=== PATIENT | female | born 1940 | race Caucasian/White ===

== ENCOUNTER 2017-01-09 11:33 | Observation (INO) | payer OTHER ==
[2017-01-09] MEDS ORDERED: NS 1,000 ML IV ONE (11:51)
[2017-01-09] MEDS ORDERED: ASPIRIN 81 MG CHEWABLE TAB PO ONE (11:51)
--- NOTE | 2017-01-09 11:51 | EDPHY ---
H & P Stated Complaint: Intermittent palpitations since Monday;hasn't taken BP meds HPI/ROS: HPI CHIEF COMPLAINT: Generalized weakness, fatigue, worse with exertion, irregular heartbeat HISTORY OF PRESENT ILLNESS: this patient very pleasant 76-year-old female significant past medical history for hypertension, AFib, presents to the emergency room by private vehicle with her family at bedside for feeling fatigued and generalized weakness that started she thinks Monday night Monday morning. She tells me every time that she goes to exert herself she denies to sit down and rest. She also has noted irregular heartbeat. Denies chest pain. Denies shortness of breath. Denies nausea vomiting. Recent illness. She does tell me she thought her blood pressure was low on Monday and is held her blood pressure medication which includes lisinopril and Amlodipine. Patient does have a history of hypertension and AFib she takes a full-dose aspirin. She decided come to the emergency room today as she has had ongoing generalized weakness. Past Medical History: Hypertension, AFib Past Surgical History: appendectomy Social History: denies daily use drugs alcohol tobacco products lives locally Family History: noncontributory ROS REVIEW OF SYSTEMS: A comprehensive 10 point review of systems is otherwise negative aside from elements mentioned in the history of present illness. Exam Constitutional appears well nontoxic, triage nursing summary reviewed, vital signs reviewed, awake/alert. (HTN) Eyes normal conjunctivae and sclera, EOMI, PERRLA. HENT normal inspection, atraumatic, moist mucus membranes, no epistaxis, neck supple/ no meningismus, no raccoon eyes. Respiratory clear to auscultation bilaterally, normal breath sounds, no respiratory distress, no wheezing. Cardiovascular irregular, irregular rhythm, no murmur, no edema, distal pulses normal. Gastrointestinal soft, non-tender, no rebound, no guarding, normal bowel sounds, no distension, no pulsatile mass. Genitourinary no CVA tenderness. Musculoskeletal no midline vertebral tenderness, full range of motion, no calf swelling, no tenderness of extremities, no meningismus, good pulses, neurovascularly intact. Skin pink, warm, & dry, no rash, skin atraumatic. Neurologic awake, alert and oriented x 3, AAOx3, moves all 4 extremities equally, motor intact, sensory intact, CN II-XII intact, normal cerebellar, normal vision, normal speech. Psychiatric normal mood/affect. Heme/Lymph/Immune no lymphadenopathy. Differential Diagnosis: includes but is not limited to in a particular order, generalized weakness, electrolyte disturbance, renal failure, cardiac arrhythmia , AFib, ACS, Medical Decision Making: plan for this patient full monitoring analyst, IV establishment, blood work, EKG. Re-evaluation: ED EKG: EKG time 11:52 a.m., this is sinus rhythm rate of 89 there is a sinus arrhythmia present. ST depressions seen in anterior lateral leads. No acute ST elevation. ED x-ray chest one view: Cardiomegaly present otherwise no significant pulmonary edema. 1318: This patient's sodium was noted to be low at 129. Given her generalized weakness and weakness with exertion at this may be an indicator of symptomatic hyponatremia. I went over her blood results with the patient she is agreeable for admission. She did receive 1 L of normal saline here. Plan is for admission for hyponatremia. Blood pressure improved on its own here. Denies chest pain or shortness of breath. D-dimer negative. Troponin negative. Source: Patient - Personal History Current Tetanus Diphtheria and Acellular Pertussis (TDAP): Unsure - Medical/Surgical History Hx Cardiac Disease: Yes Other PMH: afib. HTN - Social History Smoking Status: Former smoker Constitutional: Initial Vital Signs Temperature (C) 36.4 C 01/09/17 11:34 Heart Rate 88 01/09/17 11:34 Respiratory Rate 18 01/09/17 11:34 Blood Pressure 184/107 H 01/09/17 11:34 O2 Sat (%) 94 01/09/17 11:34 O2 Delivery Mode Room Air Allergies/Adverse Reactions: gluten [Gluten] Allergy (Verified 10/17/11 13:34) GI lidocaine [Lidocaine] Allergy (Verified 10/17/11 13:20) DROPPED BLOOD PRESSURE Home Medications: Medication Instructions Recorded Hydrochlorothiazide [HCTZ (*)] 25 mg PO DAILY 01/09/17 Levothyroxine [Synthroid 75 mcg 75 mcg PO DAILY06 01/09/17 (*)] Lisinopril [Zestril 20 mg (*)] 20 mg PO 01/09/17 amLODIPine BESYLATE [Norvasc 2.5 2.5 mg PO DAILY 01/09/17 mg (*)] Medical Decision Making - Diagnostics Imaging Results: Imaging Impressions Chest X-Ray 01/09/17 11:51 Impression: Borderline cardiomegaly. No acute process. - Data Points Laboratory Results: Laboratory Results 01/09/17 12:10 01/09/17 12:10 01/09/17 01/09/17 01/09/17 12:10 12:10 12:10 WBC 8.40 10^3/uL 10^3/uL (3.80-9.50) RBC 4.89 10^6/uL 10^6/uL (4.18-5.33) Hgb 15.1 g/dL g/dL (12.6-16.3) Hct 43.3 % % (38.0-47.0) MCV 88.5 fL fL (81.5-99.8) MCH 30.9 pg pg (27.9-34.1) MCHC 34.9 g/dL g/dL (32.4-36.7) RDW 12.6 % % (11.5-15.2) Plt Count 381 10^3/uL 10^3/uL (150-400) MPV 10.2 fL fL (8.7-11.7) Neut % (Auto) 64.5 % % (39.3-74.2) Lymph % (Auto) 27.1 % % (15.0-45.0) [facility] % (Auto) 6.1 % % (4.5-13.0) Eos % (Auto) 1.0 % % (0.6-7.6) Baso % (Auto) 0.5 % % (0.3-1.7) Nucleat RBC Rel Count 0.0 % % (0.0-0.2) Absolute Neuts (auto) 5.42 10^3/uL 10^3/uL (1.70-6.50) Absolute Lymphs (auto) 2.28 10^3/uL 10^3/uL (1.00-3.00) Absolute Monos (auto) 0.51 10^3/uL 10^3/uL (0.30-0.80) Absolute Eos (auto) 0.08 10^3/uL 10^3/uL (0.03-0.40) Absolute Basos (auto) 0.04 10^3/uL 10^3/uL (0.02-0.10) Absolute Nucleated RBC 0.00 10^3/uL 10^3/uL (0-0.01) Immature Gran % 0.8 % % (0.0-1.1) Immature Gran # 0.07 10^3/uL 10^3/uL (0.00-0.10) PT 12.5 SEC SEC (12.0-15.0) INR 0.94 (0.83-1.16) APTT 25.8 SEC SEC (23.0-38.0) D-Dimer 0.30 ug/mLFEU ug/mLFEU (0.00-0.50) Sodium 129 mEq/L L mEq/L (134-144) Potassium 4.4 mEq/L mEq/L (3.5-5.2) Chloride 94 mEq/L L mEq/L (97-110) Carbon Dioxide 22 mEq/l mEq/l (22-31) Anion Gap 13 mEq/L mEq/L (8-16) BUN 34 mg/dL H mg/dL (7-23) Creatinine 0.8 mg/dL mg/dL (0.6-1.0) Estimated GFR > 60 Glucose 111 mg/dL H mg/dL (70-100) Calcium 10.1 mg/dL mg/dL (8.5-10.4) Magnesium 2.1 mg/dL mg/dL (1.6-2.3) Total Bilirubin 0.7 mg/dL mg/dL (0.1-1.4) Conjugated Bilirubin 0.5 mg/dL mg/dL (0.0-0.5) Unconjugated Bilirubin 0.2 mg/dL mg/dL (0.0-1.1) AST 24 IU/L IU/L (14-46) ALT 31 IU/L IU/L (9-52) Alkaline Phosphatase 72 IU/L IU/L (38-126) Creatine Kinase 46 IU/L IU/L (0-156) CK-MB (CK-2) Fraction 1.15 ng/mL ng/mL (0-3.19) Troponin I < 0.012 ng/mL ng/mL (0-0.034) NT-Pro-B Natriuret Pep 736 pg/mL H pg/mL (0-450) Total Protein 7.7 g/dL g/dL (6.3-8.2) Albumin 4.7 g/dL g/dL (3.5-5.0) Medications Given: Discontinued Medications Aspirin (Aspirin) 324 mg PO EDNOW ONE Stop: 01/09/17 11:52 Last Admin: 01/09/17 12:16 Dose: 324 mg Sodium Chloride (Ns) 1,000 mls @ 0 mls/hr IV ONCE ONE PRN Reason: Wide Open Stop: 01/09/17 11:52 Last Admin: 01/09/17 12:16 Dose: 1,000 mls Departure - Departure Disposition: [facility] Inpatient Acute Clinical Impression: Hyponatremia Condition: Fair Referrals: Alvarez Carrero MD [Primary Care Provider] - As per Instructions
--- NOTE | 2017-01-09 11:55 | CPEKG ---
Heart Rate: 89 RR Interval: 674 QRSD Interval: 88 QT Interval: 352 QTC Interval: 429 QRS [place]: 10 T Wave [place]: 97 EKG Severity - ABNORMAL ECG - EKG Impression: ATRIAL FIBRILLATION, V-RATE 65-114 EKG Impression: BORDERLINE INFERIOR Q WAVES EKG Impression: MINIMAL ST DEPRESSION, ANTEROLATERAL LEADS Electronically Signed By: Bhupendra Herrera 09-Jan-2017 21:13:46
[2017-01-09 12:25] LABS: % IMMATURE GRANULYOCYTES 0.8 % (0.0-1.1); ABSOLUTE IMMATURE GRANULOCYTES 0.07 10^3/uL (0.00-0.10); ADD DIFF? NO; ADD MORPH? NO; ADD SCAN? NO; ATYPICAL LYMPHOCYTE FLAG 0 (0-99); FRAGMENT RBC FLAG 0 (0-99); HEMATOCRIT 43.3 % (38.0-47.0); HEMOGLOBIN 15.1 g/dL (12.6-16.3); LEFT SHIFT FLG 0 (0-99); LIPEMIA HEMOLYSIS FLAG 90 (0-99); MEAN CELL HEMOGLOBIN 30.9 pg (27.9-34.1); MEAN CELL HEMOGLOBIN CONCENTR. 34.9 g/dL (32.4-36.7); MEAN CELL VOLUME 88.5 fL (81.5-99.8); MEAN PLATELET VOLUME 10.2 fL (8.7-11.7); PLATELET CLUMPS FLAG 10 (0-99); PLATELET COUNT 381 10^3/uL (150-400); RED BLOOD CELL COUNT 4.89 10^6/uL (4.18-5.33); RED CELL DISTRIBUTION WIDTH 12.6 % (11.5-15.2)
[2017-01-09 12:29] LABS: INR 0.94 (0.83-1.16); PROTIME(PATIENT) 12.5 SEC (12.0-15.0)
[2017-01-09 12:30] LABS: APTT 25.8 SEC (23.0-38.0)
[2017-01-09 12:35] LABS: ALANINE AMINOTRANSFERASE 31 IU/L (9-52); ALBUMIN 4.7 g/dL (3.5-5.0); ALKALINE PHOSPHATASE 72 IU/L (38-126); ANION GAP 13 mEq/L (8-16); ASPARTATE AMINOTRANSFERASE 24 IU/L (14-46); BILIRUBIN,TOTAL 0.7 mg/dL (0.1-1.4); BILIRUBIN-CONJUGATED 0.5 mg/dL (0.0-0.5); BILIRUBIN-UNCONJUGATED 0.2 mg/dL (0.0-1.1); CALCIUM 10.1 mg/dL (8.5-10.4); CARBON DIOXIDE 22 mEq/l (22-31); CHLORIDE 94 mEq/L (97-110); CREATININE 0.8 mg/dL (0.6-1.0); GLOMERULAR FILTRATION RATE > 60; GLUCOSE 111 mg/dL (70-100); MAGNESIUM 2.1 mg/dL (1.6-2.3); POTASSIUM 4.4 mEq/L (3.5-5.2); SODIUM 129 mEq/L (134-144); TOTAL PROTEIN 7.7 g/dL (6.3-8.2)
[2017-01-09 12:47] LABS: CREATINE KINASE-MB FRACTION 1.15 ng/mL (0-3.19); TROPONIN I < 0.012 ng/mL (0-0.034)
[2017-01-09] MEDS ORDERED: ACETAMINOPHEN 325 MG TAB PO PRN (14:47)
[2017-01-09] MEDS ORDERED: ONDANSETRON DISINTEGRATING 4 MG TAB PO PRN (14:47)
[2017-01-09] MEDS ORDERED: ONDANSETRON 4 MG/2 ML VIAL IVP PRN (14:47)
[2017-01-09] MEDS: LISINOPRIL 20 MG TAB PO SCH (15:12)
--- NOTE | 2017-01-09 15:35 | PDGENHP ---
History and Physical - Chief Complaint weakness - History of Present Illness 76 yo female with h/o hypertension and atrial fibrillation presents to the ED with generalized weakness for the past 2 days. She is usually active and independent. 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 She denies any CP or SOB. No headaches, vision changes, speech difficulties or focal weakness. She denies confusion or dysequilibrium. She takes HCTZ for hypertension for "years". She has h/o A fib and notes her HR can go as high as 110, but is not on a rate control agent. No fevers/chills or focal symptoms of infection. She is admitted to the hospital for further evaluation. History Information - Allergies/Home Medication List Allergies/Adverse Reactions: gluten [Gluten] Allergy (Verified 10/17/11 13:34) GI lidocaine [Lidocaine] Allergy (Verified 10/17/11 13:20) DROPPED BLOOD PRESSURE Home Medications: Hydrochlorothiazide [HCTZ (*)] 25 mg PO DAILY 01/09/17 [Last Taken Unknown] Levothyroxine [Synthroid 75 mcg (*)] 75 mcg PO MOTUWETHFRSA@06 01/09/17 [Last Taken Unknown] Lisinopril [Zestril 20 mg (*)] 20 mg PO DAILY 01/09/17 [Last Taken Unknown] amLODIPine BESYLATE [Norvasc 2.5 mg (*)] 2.5 mg PO DAILY 01/09/17 [Last Taken Unknown] I have personally reviewed and updated: family history, medical history, social history, surgical history - Past Medical History atrial fibrillation, hypertension - Surgical History Reports: appendectomy - Family History Positive for: non-pertinent - Social History Smoking Status: Former smoker Alcohol Use: None Drug Use: None Additional social history: Lives independently. Review of Systems ROS: 10pt was reviewed & negative except for what was stated in HPI & below Physical Exam Temp Pulse Resp BP Pulse Ox 36.4 C 79 16 184/80 H 95 01/09/17 14:28 01/09/17 14:28 01/09/17 14:28 01/09/17 15:12 01/09/17 14:28 Constitutional: no apparent distress Eyes: PERRL Ears, Nose, Mouth, Throat: moist mucous membranes Cardiovascular: regular rate and rhythym, no murmur, rub, or gallop Respiratory: no respiratory distress, clear to auscultation Gastrointestinal: normoactive bowel sounds, soft, non-tender abdomen Skin: warm Musculoskeletal: full muscle strength Neurologic: AAOx3 Psychiatric: interacting appropriately Lab Data & Imaging Review 01/09/17 12:10 01/09/17 12:10 WBC 8.40 10^3/uL (3.80-9.50) 01/09/17 12:10 RBC 4.89 10^6/uL (4.18-5.33) 01/09/17 12:10 Hgb 15.1 g/dL (12.6-16.3) 01/09/17 12:10 Hct 43.3 % (38.0-47.0) 01/09/17 12:10 MCV 88.5 fL (81.5-99.8) 01/09/17 12:10 MCH 30.9 pg (27.9-34.1) 01/09/17 12:10 MCHC 34.9 g/dL (32.4-36.7) 01/09/17 12:10 RDW 12.6 % (11.5-15.2) 01/09/17 12:10 Plt Count 381 10^3/uL (150-400) 01/09/17 12:10 MPV 10.2 fL (8.7-11.7) 01/09/17 12:10 Neut % (Auto) 64.5 % (39.3-74.2) 01/09/17 12:10 Lymph % (Auto) 27.1 % (15.0-45.0) 01/09/17 12:10 Ness % (Auto) 6.1 % (4.5-13.0) 01/09/17 12:10 Eos % (Auto) 1.0 % (0.6-7.6) 01/09/17 12:10 Baso % (Auto) 0.5 % (0.3-1.7) 01/09/17 12:10 Nucleat RBC Rel Count 0.0 % (0.0-0.2) 01/09/17 12:10 Absolute Neuts (auto) 5.42 10^3/uL (1.70-6.50) 01/09/17 12:10 Absolute Lymphs (auto) 2.28 10^3/uL (1.00-3.00) 01/09/17 12:10 Absolute Monos (auto) 0.51 10^3/uL (0.30-0.80) 01/09/17 12:10 Absolute Eos (auto) 0.08 10^3/uL (0.03-0.40) 01/09/17 12:10 Absolute Basos (auto) 0.04 10^3/uL (0.02-0.10) 01/09/17 12:10 Absolute Nucleated RBC 0.00 10^3/uL (0-0.01) 01/09/17 12:10 Immature Gran % 0.8 % (0.0-1.1) 01/09/17 12:10 Immature Gran # 0.07 10^3/uL (0.00-0.10) 01/09/17 12:10 PT 12.5 SEC (12.0-15.0) 01/09/17 12:10 INR 0.94 (0.83-1.16) 01/09/17 12:10 APTT 25.8 SEC (23.0-38.0) 01/09/17 12:10 D-Dimer 0.30 ug/mLFEU (0.00-0.50) 01/09/17 12:10 Sodium 129 mEq/L (134-144) L 01/09/17 12:10 Potassium 4.4 mEq/L (3.5-5.2) 01/09/17 12:10 Chloride 94 mEq/L (97-110) L 01/09/17 12:10 Carbon Dioxide 22 mEq/l (22-31) 01/09/17 12:10 Anion Gap 13 mEq/L (8-16) 01/09/17 12:10 BUN 34 mg/dL (7-23) H 01/09/17 12:10 Creatinine 0.8 mg/dL (0.6-1.0) 01/09/17 12:10 Estimated GFR > 60 01/09/17 12:10 Glucose 111 mg/dL (70-100) H 01/09/17 12:10 Calcium 10.1 mg/dL (8.5-10.4) 01/09/17 12:10 Magnesium 2.1 mg/dL (1.6-2.3) 01/09/17 12:10 Total Bilirubin 0.7 mg/dL (0.1-1.4) 01/09/17 12:10 Conjugated Bilirubin 0.5 mg/dL (0.0-0.5) 01/09/17 12:10 Unconjugated Bilirubin 0.2 mg/dL (0.0-1.1) 01/09/17 12:10 AST 24 IU/L (14-46) 01/09/17 12:10 ALT 31 IU/L (9-52) 01/09/17 12:10 Alkaline Phosphatase 72 IU/L (38-126) 01/09/17 12:10 Creatine Kinase 46 IU/L (0-156) 01/09/17 12:10 CK-MB (CK-2) Fraction 1.15 ng/mL (0-3.19) 01/09/17 12:10 Troponin I < 0.012 ng/mL (0-0.034) 01/09/17 12:10 NT-Pro-B Natriuret Pep 736 pg/mL (0-450) H 01/09/17 12:10 Total Protein 7.7 g/dL (6.3-8.2) 01/09/17 12:10 Albumin 4.7 g/dL (3.5-5.0) 01/09/17 12:10 Assessment & Plan Assessment: Weakness - Acute. This may be symptomatic hyponatremia. Also consider hypothyroidism, check TSH. Will trend trop. Also, check echo to evaluate LV function and r/o valvular disease. No e/o infectious process. No neurodeficits to suggest CVA. Hyponatremia - This may be HCTZ induced, though she has been on this for years. Will hold HCTZ. Check urine Na and urine osm for further evaluation. She received 1 L NS in the ED. Will defer further fluids, but fluid restrict and recheck in am. A fib - she is currently rate controlled without AV page blockers. Chads-vasc 4 based on age, gender and hypertension. She has discussed anticoagulation with her PCP and has opted for ASA over anticoagulation, will continue her daily ASA. Echo and TSH planned as above. Hypertension - poor control on arrival, but she has not taken her anti- hypertensive medications for several days. Will resume Norvasc and Lisinopril. Holding HCTZ as above. Full code DVT PPLX - SCDs Dispo - obs
[2017-01-09] MEDS ORDERED: NS 1,000 ML IV SCH (15:45)
[2017-01-10 05:05] LABS: ANION GAP 9 mEq/L (8-16); CALCIUM 9.5 mg/dL (8.5-10.4); CARBON DIOXIDE 22 mEq/l (22-31); CHLORIDE 101 mEq/L (97-110); CREATININE 0.6 mg/dL (0.6-1.0); GLOMERULAR FILTRATION RATE > 60; GLUCOSE 95 mg/dL (70-100); POTASSIUM 4.8 mEq/L (3.5-5.2); SODIUM 132 mEq/L (134-144)
[2017-01-10] MEDS ORDERED: LEVOTHYROXINE 75 MCG TAB PO SCH (06:00)
[2017-01-10] MEDS ORDERED: ENOXAPARIN 40 MG/0.4 ML SYR SC SCH (09:00)
[2017-01-10] MEDS: LISINOPRIL 20 MG TAB PO SCH (09:05)
--- NOTE | 2017-01-10 09:13 | ECHO ---
[id number] + + [address] : : [place] [address] : : [phone] + + Adult Echocardiographic Report + -----+ :Name: WOODY PINEDA LStudy Date: 01/10/2017 08:07 AM : : Hospital Admission Number: [id number] Location : 340: :: 1940 Gender: Female Height: 62 in : :Age: 76 yrs Race: WH Weight: 152 lb : :Reason For Study: Atrial fibrillation/generalized weakness : : BSA: 1.7 meters2 : + -----+ MMode/2D Measurements \T\ Calculations IVSd: 1.4 cm LVIDd: 3.7 cm FS: 34.7 % Ao root diam: LVPWd: 0.80 cm LVIDs: 2.4 cm EDV(Teich): 3.0 cm 58.8 ml LA dimension: ESV(Teich): 4.3 cm 20.8 ml EF(Teich): 64.7 % LVLd ap4: 6.3 cm SV(MOD-sp4): EDV(MOD-sp4): 25.0 ml 39.0 ml LVLs ap4: 5.7 cm ESV(MOD-sp4): 14.0 ml EF(MOD-sp4): 64.1 % Normal Measurement Values: + + :LVIDd (3.5-5.7cm) IVSd (0.6-1.1cm) LVPWd (0.6-1.1cm) Aortic Root (2.0-3.7cm)Left Atrium (1.5-4.0cm): :LV Vol(d) (76-115ml) LV Vol(s) (29-48ml) Ejec Fraction (50-65%)PV Yordan (0.6- 1.2m/s) TV Yordan (0.4-1.0m/s) : :MV E Yordan (0.8-1.0m/s)MV A Yordan (0.3-1.0m/s)LVOT Yordan (0.7-1.2m/s) Asc Ao Yordan ( 0.9-1.8m/s) : + + Doppler Measurements \T\ Calculations MV E max yordan: 143.6 cm/sec Ao mean P.7 mmHg TR max yordan: 264.8 cm/sec Ao V2 mean: 155.5 cm/secTR max P.0 mmHg Ao V2 VTI: 46.5 cm RAP systole: 5.0 mmHg RVSP(TR): 33.0 mmHg Left Ventricle The left ventricle is normal in size. There is mild concentric left ventricular hypertrophy. Left ventricular systolic function is normal. Ejection Fraction = 70-75%. No regional wall motion abnormalities noted. Right Ventricle The right ventricle is normal in size and function. Atria The left atrium is moderately dilated. Right atrial size is normal. The interatrial septum is intact with no evidence for an atrial septal defect. Mitral Valve There is mild mitral annular calcification. There is no evidence of mitral valve prolapse. There is no mitral valve stenosis. There is moderate mitral regurgitation. Tricuspid Valve Normal tricuspid valve. There is moderate tricuspid regurgitation. Right ventricular systolic pressure is normal. Aortic Valve The aortic valve is trileaflet. The aortic valve opens well. Mild aortic sclerosis. AV max PG is 19mmHG. AV mean PG is 11mmHG. There is no aortic insufficiency. Pulmonic Valve The pulmonic valve is normal in structure and function. Trace pulmonic valvular regurgitation. Great Vessels The aortic root is normal size. Pericardium/Pleural There is no pericardial effusion. Conclusion A complete two-dimensional transthoracic echocardiogram was performed (2D, M-mode, Doppler and color flow Doppler). Left ventricular systolic function is normal. There is mild concentric left ventricular hypertrophy. Ejection Fraction = 70-75%. The left atrium is moderately dilated. There is mild mitral annular calcification. There is moderate mitral regurgitation. There is moderate tricuspid regurgitation. Right ventricular systolic pressure is normal. Mild aortic sclerosis. AV max PG is 19mmHG. AV mean PG is 11mmHG. Trace pulmonic valvular regurgitation. Final Reading Physician: Tru Burgess signed on 01/10/2017 09:12 AM Ordering Physician: Ginna Abernathy Performed By: Geovanna Rangel RDCS
[2017-01-10] MEDS ORDERED: DILTIAZEM 30 MG TAB ONE (09:55)
[2017-01-10] MEDS ORDERED: APIXABAN 5 MG TAB ONE (09:55)
[2017-01-10] MEDS ORDERED: APIXABAN 5 MG TAB PO SCH ×2 (10:14→21:00)
[2017-01-10] MEDS ORDERED: DILTIAZEM 30 MG TAB PO SCH ×2 (10:15→12:00)
[2017-01-10 12:09] VITALS: BP 132/74; PULSE 71; RESP 18; TEMP 97.6; O2SAT 93
--- NOTE | 2017-01-11 04:19 | GDS ---
[f rep st] DISCHARGE SUMMARY DISCHARGE DIAGNOSES: 1. Weakness, resolved. 2. Atrial fibrillation with rapid ventricular rate with activity. 3. Hyponatremia, improved. 4. Hypertension. 5. Valvular heart disease with moderate mitral regurgitation and moderate tricuspid regurgitation. HISTORY: For details, please see dictated history and physical dated January 09, 2017. In brief, the miguel angel gaming is a 76-year-old female with history of hypertension and paroxysmal atrial fibrillation, who presents to the emergency department with generalized weakness over the past 2 days. She was admitt ed to the hospital for further evaluation. HOSPITAL COURSE: The patient was admitted to the medical/surgical unit. She was found to be hypona tremic on admission with a sodium of 129. This was down from her baseline of the high 130s to 140 r pantera. Her hydrochlorothiazide puts her risk for hyponatremia, and thus this was held. She received gentle IV fluid hydration with normal saline, along with a fluid restriction, and her follow-up sod ium the next morning was 132. This is possibly the source of her acute weakness. Additionally, she was found to be in atrial fibrillation, though was rate controlled on admission, without any AV nod al blockers. However, with activity her heart rate increased to the 140s. It is possible that she is not tolerating atrial fibrillation with activity, and this is the etiology of her weakness. I di scussed with her obtaining a cardiology consult to consider cardioversion; however, she wished to av oid cardioversion. Therefore, she was treated with oral diltiazem to achieve better rate control wi th activity. I also discussed with her anticoagulation as her CHADS-VASc is 4 giving her a 4% annua l stroke risk. She agreed to anticoagulation. She was started on Eliquis and given a coupon for a 1-month supply. She will have to discuss with her primary care physician if Eliquis is covered by [facility] insurance, and if not, she may opt to change to a different novel anticoagulant. Her TSH was nor mal. Her echocardiogram showed a normal ejection fraction of 70% to 75% with mild left ventricular hypertrophy, as well as moderate mitral regurgitation and moderate tricuspid regurgitation. She had 2 negative troponins and no chest pain. Her weakness had completely resolved, and she felt well, e rochelle stressing herself on 2 flights of stairs. Given that we are adding diltiazem to her regimen, I discontinued her amlodipine. I will also stop her hydrochlorothiazide to prevent further problems w ith hyponatremia. DISPOSITION: Patient is discharged home in stable condition. FOLLOWUP: 1. I have referred the patient to Yen Randall at the [facility] for followup on her atr ial fibrillation and mitral valve disease. 2. Dr. Alvarez Carrero, primary care physician. DISCHARGE MEDICATIONS: [facility] for completed and updated outpatient medication list. N ew medications on discharge include Eliquis 5 mg p.o. b.i.d., #60, no refills; diltiazem 30 mg p.o. q.6 hours, #120, no refills. She may wish to change to long-acting diltiazem when she follows up [facility] for dosing convenience. Discontinued medications include hydrochlorothiazide, amlodipine. She will continue her regular out patient prescription for lisinopril and levothyroxine. /[id number]/MODL
== END 2017-01-10 14:42 | disposition home or self-care (01) ==
LOC: INTOOBSV 13:17 → F3N 14:36
PROVIDERS: ADMIT Internal Medicine; ATTEND Internal Medicine
DX: E87.1 Hypo-osmolality and hyponatremia (principal); I48.91 Unspecified atrial fibrillation; I10 Essential (primary) hypertension; I08.3 Combined rheumatic disorders of mitral, aortic and tricuspid valves; Z87.891 Personal history of nicotine dependence
CPT/HCPCS: 71010; 93005; 93306; 97161; G0378; G8978; G8979; G8980

== ENCOUNTER → 2018-09-07 | Outpatient (CLI) | payer OTHER | LOC: FLAB 15:33 | PROVIDERS: ATTEND Internal Medicine | DX: M51.36 Other intervertebral disc degeneration, lumbar region (principal); M51.37 Other intervertebral disc degeneration, lumbosacral region; M25.511 Pain in right shoulder; G89.29 Other chronic pain; R10.2 Pelvic and perineal pain; I70.0 Atherosclerosis of aorta ==

== ENCOUNTER → 2018-09-18 | Outpatient (CLI) | payer OTHER | LOC: FIMAGING 12:06 | PROVIDERS: ATTEND Internal Medicine | DX: M48.061 Spinal stenosis, lumbar region without neurogenic claudication (principal); M48.07 Spinal stenosis, lumbosacral region; M51.36 Other intervertebral disc degeneration, lumbar region; M51.37 Other intervertebral disc degeneration, lumbosacral region; M46.96 Unspecified inflammatory spondylopathy, lumbar region; M46.97 Unspecified inflammatory spondylopathy, lumbosacral region; M25.78 Osteophyte, vertebrae ==